=== PATIENT | female | born 1985 | race Caucasian/White ===

== ENCOUNTER 2024-06-26 14:24 | Outpatient (CLI) | payer BC, SELFPAY | END 2024-06-26 14:25 | disposition home or self-care (01) | PROVIDERS: Visit Provider Physician Assistant Medical | DX: R53.83 Other fatigue (principal); I10 Essential (primary) hypertension; R42 Dizziness and giddiness | CPT/HCPCS: 80053; 82306; 82607; 82728; 84443 ==

== ENCOUNTER 2025-01-03 16:19 | Outpatient (CLI) | payer BC, SELFPAY | END 2025-01-03 16:20 | disposition home or self-care (01) | LOC: NFLDREF 01-10 00:58 | PROVIDERS: PCP Family Medicine; Referring Provider Family Medicine; Visit Provider Physician Assistant | DX: R35.0 Frequency of micturition (principal); N39.0 Urinary tract infection, site not specified | CPT/HCPCS: 87086 ==